=== PATIENT | male | born 1955 | race Two or more races ===

== ENCOUNTER 2020-08-09 15:35 | Inpatient (IN) | payer OTHER ==
[~2020-08-09] VITALS: Ht 170.2 cm; Wt 91.2 kg
[2020-08-09 19:00] LABS: Basophils # (auto) 0 10 ^3/uL (0-0.2); Basophils % (auto) 0.1 % (0.0-2.0); Eosinophils # (auto) 0.2 10 ^3/uL (0-0.8); Eosinophils % (auto) 1.1 % (0.0-7.0); Hematocrit 44.3 % (41.0-53.0); Hemoglobin 14.7 g/dL (13.5-17.5); Lymphocytes # (auto) 0.6 10 ^3/uL (0.4-5.4); Lymphocytes % (auto) 4.1 % (10.0-50.0); Mean Corpuscular Hemoglobin 29.7 pg (28.0-32.0); Mean Corpuscular Hgb Conc. 33.2 g/dL (32.0-36.0); Mean Corpuscular Volume 89.4 fL (80.0-100.0); Monocytes # (auto) 0.9 10 ^3/uL (0-1.3); Neutrophils % (auto) 88.7 % (37.0-80.0); Nucleated Red Blood Cells % 0.4 %; Platelet Count (auto) 384 10^3/uL (140-450); Red Blood Cells 4.96 10^6/uL (4.5-5.90); Red Cell Distribution Width 13.8 % (11.8-14.3); White Blood Cell 15.8 10^3/uL (4.4-10.8)
[2020-08-09 19:25] LABS: Albumin 2.3 g/dL (3.4-5.0); Anion Gap 9 (5-15); Blood Urea Nitrogen 17 mg/dL (7-18); Carbon Dioxide 21 mmol/L (21-32); Chloride 104 mmol/L (98-107); Glucose 115 mg/dL (74-106); Magnesium 2.9 mg/dL (1.6-2.6); Potassium 3.9 mmol/L (3.5-5.1); Sodium 134 mmol/L (136-145)
[2020-08-09 19:32] LABS: Alanine Aminotransferase 71 U/L (16-61); Alkaline Phosphatase 382 U/L (45-117); Aspartate Aminotransferase 30 U/L (15-37); BUN/Creatinine Ratio 16.7; Bilirubin, Total 1.5 mg/dL (0.2-1.0); GFR African American 95 mL/min; GFR Non-African American 78 mL/min; Total Protein 7.1 g/dL (6.4-8.2)
[2020-08-09] MEDS ORDERED: AZITHROMYCIN 500MG/ 250ML 250 ML IV ONE (20:30)
[2020-08-09] MEDS ORDERED: ASCORBIC ACID 500 MG TAB PO ONE (20:30)
[2020-08-09] MEDS ORDERED: DexAMETHasone SOD PHOS 10MG/1ML VIAL INJ IV ONE (20:30)
[2020-08-09] MEDS ORDERED: MORPHINE SULF INJ 2 MG/ML SYRINGE 1ML IV PRN (22:15)
[2020-08-09] MEDS ORDERED: DOCUSATE SOD 100 MG CAP PO PRN (22:15)
[2020-08-09] MEDS ORDERED: ACETAMINOPHEN 500 MG TAB PO PRN (22:15)
[2020-08-09] MEDS ORDERED: ACETAMINOPHEN 325 MG TAB PO PRN (22:15)
[2020-08-09] MEDS ORDERED: NITROGLYCERIN 0.4 MG SL TAB SL PRN (22:15)
[2020-08-10] MEDS: DOXYCYCLINE 100MG/250ML 250 ML IV SCH ×3 (00:20→22:52)
[2020-08-10] MEDS: SODIUM CHLOR 0.9% PF (SALINE LOCK) 10ML VIAL/SYR IV SCH ×3 (04:49→22:47)
[2020-08-10] MEDS ORDERED: ENOXAPARIN SOD 40 MG/0.4 ML SYRINGE SC SCH (10:00)
[2020-08-10 10:21] LABS: Hematocrit 41.9 % (41.0-53.0); Hemoglobin 14.1 g/dL (13.5-17.5); Mean Corpuscular Hgb Conc. 33.6 g/dL (32.0-36.0); Mean Corpuscular Volume 89.5 fL (80.0-100.0); Platelet Count (auto) 434 10^3/uL (140-450); Red Blood Cells 4.68 10^6/uL (4.5-5.90); Red Cell Distribution Width 13.7 % (11.8-14.3); White Blood Cell 12.7 10^3/uL (4.4-10.8)
[2020-08-10] MEDS: BUDESONIDE (INHALATION) 180 MCG IH IN SCH ×2 (10:25→21:38)
[2020-08-10] MEDS: ALBUTEROL SULF HFA 90MCG INH 200DOSE IN PRN ×2 (10:26→21:38)
[2020-08-10 10:29] LABS: Potassium 4.3 mmol/L (3.5-5.1)
[2020-08-10 10:38] LABS: Albumin 2.2 g/dL (3.4-5.0); BUN/Creatinine Ratio 19.8; Bilirubin, Total 1.1 mg/dL (0.2-1.0); Calcium 8.2 mg/dL (8.5-10.1); Total Protein 7.1 g/dL (6.4-8.2)
[2020-08-10 10:39] LABS: Basophils % (manual) 0 (0.0-2.0); Blast Cells 0; Eosinophils % (manual) 0 (0-7); Promyelocytes % 0; Reactive Lymphocytes 0
[2020-08-10] MEDS: DexAMETHasone SOD PHOS 10MG/1ML VIAL INJ IV SCH (11:30)
[2020-08-10] MEDS: PANTOPRAZOLE 40 MG/10 ML VIAL INJ IV SCH (11:30)
[2020-08-10] MEDS: ZINC SULFATE 220mg CAP or TAB PO SCH (12:00)
[2020-08-10] MEDS: CHOLECALCIFEROL (VITD3) 2,000 UNIT CAP PO SCH (12:00)
[2020-08-10] MEDS: ASCORBIC ACID 1,000 MG TAB PO SCH (12:00)
[2020-08-10] MEDS: MULTIPLE VITAMIN TAB PO SCH (12:00)
[2020-08-10 14:26] LABS: Band Neutrophils % (manual) 11
[2020-08-10 14:27] LABS: Lymphocytes % (manual) 2 (10.0-50.0); Metamyelocytes % 1; Monocytes % (manual) 6 (0-12); Myelocytes % 2
[2020-08-10 20:00] VITALS: BP 149/74
[2020-08-10 21:47] VITALS: BP 149/74
[2020-08-11] MEDS ORDERED: INFLUENZA QUAD 2020-2021 0.5 ML SYRG IM ONE (00:30)
[2020-08-11] MEDS ORDERED: PNEUMOCOCCAL VACC POLYS 25 MCG/0.5 ML VIAL IM ONE (00:30)
[2020-08-11] MEDS: HYDROcodone-ACET 5/325MG TAB PO PRN (04:32)
[2020-08-11 05:00] VITALS: BP 122/56
[2020-08-11] MEDS: SODIUM CHLOR 0.9% PF (SALINE LOCK) 10ML VIAL/SYR IV SCH ×3 (05:42→21:09)
[2020-08-11 07:47] LABS: Red Cell Distribution Width 13.7 % (11.8-14.3)
[2020-08-11 07:49] LABS: Hematocrit 39.2 % (41.0-53.0); Hemoglobin 12.9 g/dL (13.5-17.5); Mean Corpuscular Hemoglobin 29.5 pg (28.0-32.0); Mean Corpuscular Volume 89.4 fL (80.0-100.0); Platelet Count (auto) 519 10^3/uL (140-450); Red Blood Cells 4.39 10^6/uL (4.5-5.90); White Blood Cell 20.1 10^3/uL (4.4-10.8)
[2020-08-11 07:56] LABS: Basophils % (manual) 0 (0.0-2.0); Blast Cells 0; Eosinophils % (manual) 0 (0-7); Promyelocytes % 0; Reactive Lymphocytes 0
[2020-08-11 07:57] LABS: Potassium 4.4 mmol/L (3.5-5.1)
[2020-08-11 08:04] LABS: BUN/Creatinine Ratio 26.4; Calcium 8.2 mg/dL (8.5-10.1)
[2020-08-11] MEDS ORDERED: REMDESIVIR PER PHARMACY 0 ML IV SCH ×2 (08:30→09:30)
[2020-08-11 08:37] VITALS: BP 116/68
[2020-08-11] MEDS: ALBUTEROL SULF HFA 90MCG INH 200DOSE IN PRN ×2 (09:09→22:30)
[2020-08-11] MEDS: BUDESONIDE (INHALATION) 180 MCG IH IN SCH ×2 (09:09→22:30)
[2020-08-11] MEDS ORDERED: ENOXAPARIN SOD 40 MG/0.4 ML SYRINGE SC SCH (10:00)
[2020-08-11] MEDS: CHOLECALCIFEROL (VITD3) 2,000 UNIT CAP PO SCH (10:00)
[2020-08-11] MEDS: DexAMETHasone SOD PHOS 10MG/1ML VIAL INJ IV SCH (10:22)
[2020-08-11] MEDS: DOXYCYCLINE 100MG/250ML 250 ML IV SCH ×2 (10:22→21:10)
[2020-08-11] MEDS: PANTOPRAZOLE 40 MG/10 ML VIAL INJ IV SCH (10:22)
[2020-08-11] MEDS: MULTIPLE VITAMIN TAB PO SCH (10:22)
[2020-08-11] MEDS: ASCORBIC ACID 1,000 MG TAB PO SCH (10:22)
[2020-08-11] MEDS: ZINC SULFATE 220mg CAP or TAB PO SCH (10:22)
[2020-08-11] MEDS: ENOXAPARIN SOD 40 MG/0.4 ML SYRINGE SC SCH ×2 (10:23→21:10)
[2020-08-11 13:15] VITALS: BP 124/70
[2020-08-11] MEDS: guaiFENesin-CODEINE Liq 5 ML UD PO PRN ×2 (14:06→21:09)
[2020-08-11 14:10] LABS: Band Neutrophils % (manual) 7; Lymphocytes % (manual) 4 (10.0-50.0); Metamyelocytes % 1; Monocytes % (manual) 9 (0-12); Myelocytes % 1
[2020-08-11] MEDS ORDERED: REMDESIVIR 200 MG in NS 210ml LOADING DOSE ADULT IV ONE (15:00)
[2020-08-11 17:14] VITALS: BP 99/69
[2020-08-11 18:05] LABS: Urine WBC None Seen /hpf (0 - 3)
[2020-08-11 18:28] LABS: Urine Bacteria NONE SEEN /hpf (None Seen); Urine Blood Negative /uL (Negative); Urine Specific Gravity 1.012 (1.001-1.035)
[2020-08-11 22:00] VITALS: BP 125/73
[2020-08-12] MEDS: guaiFENesin-CODEINE Liq 5 ML UD PO PRN ×3 (02:33→20:42)
[2020-08-12] MEDS: SODIUM CHLOR 0.9% PF (SALINE LOCK) 10ML VIAL/SYR IV SCH ×3 (06:30→22:00)
[2020-08-12 07:14] LABS: Hematocrit 41.2 % (41.0-53.0); Hemoglobin 13.8 g/dL (13.5-17.5); Mean Corpuscular Hgb Conc. 33.5 g/dL (32.0-36.0); Mean Corpuscular Volume 89.5 fL (80.0-100.0); Platelet Count (auto) 548 10^3/uL (140-450); Red Blood Cells 4.61 10^6/uL (4.5-5.90); White Blood Cell 15.5 10^3/uL (4.4-10.8)
[2020-08-12 07:24] LABS: Band Neutrophils % (manual) 0; Basophils % (manual) 0 (0.0-2.0); Blast Cells 0; Eosinophils % (manual) 0 (0-7); Promyelocytes % 0; Reactive Lymphocytes 0
[2020-08-12 07:37] LABS: Potassium 4.3 mmol/L (3.5-5.1)
[2020-08-12 08:02] LABS: Albumin 2.2 g/dL (3.4-5.0); BUN/Creatinine Ratio 24.5; Bilirubin, Total 0.7 mg/dL (0.2-1.0); CRP High Sensitivity 4.4 mg/dL (< 0.3); Calcium 8.7 mg/dL (8.5-10.1)
[2020-08-12] MEDS: ALBUTEROL SULF HFA 90MCG INH 200DOSE IN PRN ×2 (08:27→22:30)
[2020-08-12] MEDS: BUDESONIDE (INHALATION) 180 MCG IH IN SCH ×2 (08:27→22:30)
[2020-08-12 08:34] LABS: Lymphocytes % (manual) 7 (10.0-50.0); Metamyelocytes % 1; Monocytes % (manual) 5 (0-12); Myelocytes % 2
[2020-08-12 08:46] VITALS: BP 135/69
[2020-08-12] MEDS: PANTOPRAZOLE 40 MG/10 ML VIAL INJ IV SCH (10:16)
[2020-08-12] MEDS: DOXYCYCLINE 100MG/250ML 250 ML IV SCH ×2 (10:16→22:06)
[2020-08-12] MEDS: ASCORBIC ACID 1,000 MG TAB PO SCH (10:16)
[2020-08-12] MEDS: ZINC SULFATE 220mg CAP or TAB PO SCH (10:16)
[2020-08-12] MEDS: MULTIPLE VITAMIN TAB PO SCH (10:16)
[2020-08-12] MEDS: CHOLECALCIFEROL (VITD3) 2,000 UNIT CAP PO SCH (10:16)
[2020-08-12] MEDS: DexAMETHasone SOD PHOS 10MG/1ML VIAL INJ IV SCH (10:16)
[2020-08-12] MEDS: ENOXAPARIN SOD 40 MG/0.4 ML SYRINGE SC SCH (10:18)
[2020-08-12 13:00] VITALS: BP 116/71
[2020-08-12] MEDS: REMDESIVIR 100 MG in SODIUM CHL 0.9% 250 ML IV SCH (15:00)
[2020-08-12 17:23] VITALS: BP 112/71
[2020-08-13] MEDS: guaiFENesin-CODEINE Liq 5 ML UD PO PRN ×3 (04:57→22:11)
[2020-08-13 05:00] VITALS: BP 117/76
[2020-08-13] MEDS: SODIUM CHLOR 0.9% PF (SALINE LOCK) 10ML VIAL/SYR IV SCH ×3 (05:37→22:09)
[2020-08-13] MEDS: HYDROcodone-ACET 5/325MG TAB PO PRN (05:59)
[2020-08-13] MEDS: BUDESONIDE (INHALATION) 180 MCG IH IN SCH ×2 (07:28→20:44)
[2020-08-13 08:30] VITALS: BP 137/79
[2020-08-13] MEDS ORDERED: LISI-646 PO (08:45)
[2020-08-13] MEDS ORDERED: AMLO5TAB15 PO (08:45)
[2020-08-13 09:16] LABS: Hemoglobin 14.8 g/dL (13.5-17.5); Mean Corpuscular Hgb Conc. 33.7 g/dL (32.0-36.0); Platelet Count (auto) 601 10^3/uL (140-450); Red Blood Cells 4.94 10^6/uL (4.5-5.90); Red Cell Distribution Width 13.7 % (11.8-14.3); White Blood Cell 18.5 10^3/uL (4.4-10.8)
[2020-08-13 09:17] LABS: Basophils % (manual) 0 (0.0-2.0); Blast Cells 0; Eosinophils % (manual) 0 (0-7); Promyelocytes % 0; Reactive Lymphocytes 0
[2020-08-13 09:25] LABS: Albumin 2.4 g/dL (3.4-5.0); Calcium 8.8 mg/dL (8.5-10.1); Potassium 4.1 mmol/L (3.5-5.1)
[2020-08-13 09:28] LABS: Bilirubin, Total 0.8 mg/dL (0.2-1.0); Total Protein 7.4 g/dL (6.4-8.2)
[2020-08-13 09:54] LABS: CRP High Sensitivity 7.89 mg/dL (< 0.3)
[2020-08-13] MEDS: SODIUM CHLORIDE 0.9% 1,000 ML IV SCH ×2 (11:15→18:15)
[2020-08-13] MEDS: DexAMETHasone SOD PHOS 10MG/1ML VIAL INJ IV SCH (11:15)
[2020-08-13] MEDS: DOXYCYCLINE 100MG/250ML 250 ML IV SCH ×2 (11:16→22:10)
[2020-08-13] MEDS: PANTOPRAZOLE 40 MG/10 ML VIAL INJ IV SCH (11:16)
[2020-08-13] MEDS: ZINC SULFATE 220mg CAP or TAB PO SCH (11:17)
[2020-08-13] MEDS: ASCORBIC ACID 1,000 MG TAB PO SCH (11:17)
[2020-08-13] MEDS: MULTIPLE VITAMIN TAB PO SCH (11:17)
[2020-08-13] MEDS: CHOLECALCIFEROL (VITD3) 2,000 UNIT CAP PO SCH (11:18)
[2020-08-13 12:03] LABS: BUN/Creatinine Ratio 28.4
[2020-08-13 12:30] VITALS: BP 98/65
[2020-08-13 13:06] LABS: Band Neutrophils % (manual) 3; Lymphocytes % (manual) 5 (10.0-50.0); Metamyelocytes % 1; Monocytes % (manual) 10 (0-12); Myelocytes % 5
[2020-08-13] MEDS: ENOXAPARIN SOD 40 MG/0.4 ML SYRINGE SC SCH (13:37)
[2020-08-13] MEDS ORDERED: IOHEXOL 350 MG/ML 100ML IJ ONE (13:44)
[2020-08-13] MEDS: REMDESIVIR 100 MG in SODIUM CHL 0.9% 250 ML IV SCH (15:00)
[2020-08-13 17:00] VITALS: BP 115/61
[2020-08-13] MEDS: ALBUTEROL SULF HFA 90MCG INH 200DOSE IN PRN (20:44)
[2020-08-13 22:00] VITALS: BP 104/68
[2020-08-14] MEDS: HYDROcodone-ACET 5/325MG TAB PO PRN ×3 (00:49→22:10)
[2020-08-14] MEDS: SODIUM CHLOR 0.9% PF (SALINE LOCK) 10ML VIAL/SYR IV SCH ×3 (06:16→22:09)
[2020-08-14] MEDS: guaiFENesin-CODEINE Liq 5 ML UD PO PRN ×2 (06:37→15:47)
[2020-08-14 07:06] LABS: Hemoglobin 14.7 g/dL (13.5-17.5); White Blood Cell 17.2 10^3/uL (4.4-10.8)
[2020-08-14 07:17] LABS: Hematocrit 43.6 % (41.0-53.0); Mean Corpuscular Hemoglobin 30.2 pg (28.0-32.0); Mean Corpuscular Hgb Conc. 33.7 g/dL (32.0-36.0); Mean Corpuscular Volume 89.6 fL (80.0-100.0); Platelet Count (auto) 627 10^3/uL (140-450); Red Blood Cells 4.87 10^6/uL (4.5-5.90)
[2020-08-14] MEDS: ALBUTEROL SULF HFA 90MCG INH 200DOSE IN PRN ×3 (07:28→21:31)
[2020-08-14] MEDS: BUDESONIDE (INHALATION) 180 MCG IH IN SCH ×2 (07:31→21:30)
[2020-08-14 07:43] LABS: Potassium 4.2 mmol/L (3.5-5.1)
[2020-08-14 07:52] LABS: Basophils % (manual) 0 (0.0-2.0); Blast Cells 0; Metamyelocytes % 0; Promyelocytes % 0; Reactive Lymphocytes 0
[2020-08-14 08:07] LABS: Albumin 2.4 g/dL (3.4-5.0); BUN/Creatinine Ratio 28.9; Bilirubin, Total 0.8 mg/dL (0.2-1.0); CRP High Sensitivity 9.34 mg/dL (< 0.3); Total Protein 7.4 g/dL (6.4-8.2)
[2020-08-14 08:42] LABS: Band Neutrophils % (manual) 3; Eosinophils % (manual) 1 (0-7); Lymphocytes % (manual) 9 (10.0-50.0); Monocytes % (manual) 8 (0-12); Myelocytes % 1
[2020-08-14 09:00] VITALS: BP 107/75
[2020-08-14] MEDS: DOXYCYCLINE 100MG/250ML 250 ML IV SCH ×2 (10:00→22:09)
[2020-08-14] MEDS: MULTIPLE VITAMIN TAB PO SCH (10:32)
[2020-08-14] MEDS: ZINC SULFATE 220mg CAP or TAB PO SCH (10:34)
[2020-08-14] MEDS: ENOXAPARIN SOD 100 MG/1 ML SYRINGE SC SCH ×2 (10:34→22:10)
[2020-08-14] MEDS: CHOLECALCIFEROL (VITD3) 2,000 UNIT CAP PO SCH (10:35)
[2020-08-14] MEDS: ASCORBIC ACID 1,000 MG TAB PO SCH (10:35)
[2020-08-14] MEDS: PANTOPRAZOLE 40 MG/10 ML VIAL INJ IV SCH (10:36)
[2020-08-14] MEDS: DexAMETHasone SOD PHOS 10MG/1ML VIAL INJ IV SCH (10:37)
[2020-08-14 13:00] VITALS: BP 115/73
[2020-08-14] MEDS: REMDESIVIR 100 MG in SODIUM CHL 0.9% 250 ML IV SCH (15:47)
[2020-08-14 17:00] VITALS: BP 109/54
[2020-08-14 22:00] VITALS: BP 112/61
[2020-08-15] MEDS: guaiFENesin-CODEINE Liq 5 ML UD PO PRN ×3 (01:36→21:27)
[2020-08-15 05:51] LABS: White Blood Cell 14.6 10^3/uL (4.4-10.8)
[2020-08-15 05:53] LABS: Hematocrit 43.3 % (41.0-53.0); Hemoglobin 14.2 g/dL (13.5-17.5); Mean Corpuscular Hemoglobin 29.6 pg (28.0-32.0); Mean Corpuscular Hgb Conc. 32.7 g/dL (32.0-36.0); Mean Corpuscular Volume 90.4 fL (80.0-100.0); Platelet Count (auto) 584 10^3/uL (140-450); Red Blood Cells 4.79 10^6/uL (4.5-5.90); Red Cell Distribution Width 13.8 % (11.8-14.3)
[2020-08-15] MEDS: SODIUM CHLOR 0.9% PF (SALINE LOCK) 10ML VIAL/SYR IV SCH ×3 (05:54→21:19)
[2020-08-15 06:07] LABS: Potassium 4.3 mmol/L (3.5-5.1)
[2020-08-15 06:18] LABS: Albumin 2.2 g/dL (3.4-5.0); BUN/Creatinine Ratio 27.9; Bilirubin, Total 0.6 mg/dL (0.2-1.0); CRP High Sensitivity 7.37 mg/dL (< 0.3); Calcium 8.2 mg/dL (8.5-10.1); Total Protein 6.5 g/dL (6.4-8.2)
[2020-08-15 06:39] LABS: Basophils % (manual) 0 (0.0-2.0); Blast Cells 0; Metamyelocytes % 0; Myelocytes % 0; Promyelocytes % 0; Reactive Lymphocytes 0
[2020-08-15] MEDS: ALBUTEROL SULF HFA 90MCG INH 200DOSE IN PRN ×2 (08:15→22:13)
[2020-08-15] MEDS: BUDESONIDE (INHALATION) 180 MCG IH IN SCH ×2 (08:15→22:13)
[2020-08-15 08:30] VITALS: BP 111/66
[2020-08-15 08:46] LABS: Band Neutrophils % (manual) 7; Eosinophils % (manual) 1 (0-7); Lymphocytes % (manual) 6 (10.0-50.0); Monocytes % (manual) 6 (0-12)
[2020-08-15] MEDS: HYDROcodone-ACET 5/325MG TAB PO PRN (09:43)
[2020-08-15] MEDS: ASCORBIC ACID 1,000 MG TAB PO SCH (09:44)
[2020-08-15] MEDS: MULTIPLE VITAMIN TAB PO SCH (09:44)
[2020-08-15] MEDS: PANTOPRAZOLE 40 MG/10 ML VIAL INJ IV SCH (09:44)
[2020-08-15] MEDS: ENOXAPARIN SOD 100 MG/1 ML SYRINGE SC SCH ×2 (09:44→21:28)
[2020-08-15] MEDS: DexAMETHasone SOD PHOS 10MG/1ML VIAL INJ IV SCH (09:45)
[2020-08-15] MEDS: ZINC SULFATE 220mg CAP or TAB PO SCH (09:51)
[2020-08-15] MEDS: CHOLECALCIFEROL (VITD3) 2,000 UNIT CAP PO SCH (09:52)
[2020-08-15] MEDS: REMDESIVIR 100 MG in SODIUM CHL 0.9% 250 ML IV SCH (15:06)
[2020-08-15 16:27] VITALS: BP 106/66
[2020-08-15 22:00] VITALS: BP 129/60
[2020-08-16 05:57] VITALS: BP 128/67
[2020-08-16] MEDS: SODIUM CHLOR 0.9% PF (SALINE LOCK) 10ML VIAL/SYR IV SCH ×3 (06:00→20:57)
[2020-08-16 07:29] LABS: Hematocrit 44.7 % (41.0-53.0); Red Blood Cells 4.88 10^6/uL (4.5-5.90)
[2020-08-16 07:31] LABS: Mean Corpuscular Hemoglobin 30.7 pg (28.0-32.0); Mean Corpuscular Hgb Conc. 33.6 g/dL (32.0-36.0); Mean Corpuscular Volume 91.6 fL (80.0-100.0); Platelet Count (auto) 557 10^3/uL (140-450); Red Cell Distribution Width 13.8 % (11.8-14.3); White Blood Cell 13.7 10^3/uL (4.4-10.8)
[2020-08-16 07:46] LABS: Potassium 4.2 mmol/L (3.5-5.1)
[2020-08-16 07:52] LABS: Albumin 2.5 g/dL (3.4-5.0); BUN/Creatinine Ratio 29.1; Basophils % (manual) 0 (0.0-2.0); Blast Cells 0; Calcium 8.8 mg/dL (8.5-10.1); Myelocytes % 0; Promyelocytes % 0; Reactive Lymphocytes 0
[2020-08-16 07:55] LABS: Bilirubin, Total 0.7 mg/dL (0.2-1.0); Total Protein 7.2 g/dL (6.4-8.2)
[2020-08-16 09:00] VITALS: BP 106/68
[2020-08-16 09:07] LABS: Band Neutrophils % (manual) 1; Eosinophils % (manual) 1 (0-7); Lymphocytes % (manual) 4 (10.0-50.0); Metamyelocytes % 1; Monocytes % (manual) 6 (0-12)
[2020-08-16] MEDS: PANTOPRAZOLE 40 MG/10 ML VIAL INJ IV SCH (10:34)
[2020-08-16] MEDS: ASCORBIC ACID 1,000 MG TAB PO SCH (10:34)
[2020-08-16] MEDS: CHOLECALCIFEROL (VITD3) 2,000 UNIT CAP PO SCH (10:34)
[2020-08-16] MEDS: DexAMETHasone SOD PHOS 10MG/1ML VIAL INJ IV SCH (10:34)
[2020-08-16] MEDS: BUDESONIDE (INHALATION) 180 MCG IH IN SCH ×2 (10:34→22:48)
[2020-08-16] MEDS: MULTIPLE VITAMIN TAB PO SCH (10:34)
[2020-08-16] MEDS: ZINC SULFATE 220mg CAP or TAB PO SCH (10:34)
[2020-08-16] MEDS: guaiFENesin-CODEINE Liq 5 ML UD PO PRN ×3 (10:35→20:58)
[2020-08-16] MEDS: ENOXAPARIN SOD 100 MG/1 ML SYRINGE SC SCH ×2 (10:35→20:58)
[2020-08-16 16:00] VITALS: BP 112/73
[2020-08-16 22:20] VITALS: BP 98/64
[2020-08-17] MEDS: guaiFENesin-CODEINE Liq 5 ML UD PO PRN ×4 (03:42→21:08)
[2020-08-17 05:11] VITALS: BP 107/60
[2020-08-17] MEDS: SODIUM CHLOR 0.9% PF (SALINE LOCK) 10ML VIAL/SYR IV SCH ×3 (05:37→22:20)
[2020-08-17 07:34] LABS: Mean Corpuscular Volume 89.5 fL (80.0-100.0)
[2020-08-17 07:37] LABS: Hematocrit 40.4 % (41.0-53.0); Hemoglobin 13.8 g/dL (13.5-17.5); Mean Corpuscular Hemoglobin 30.5 pg (28.0-32.0); Mean Corpuscular Hgb Conc. 34.1 g/dL (32.0-36.0); Platelet Count (auto) 594 10^3/uL (140-450); Red Blood Cells 4.52 10^6/uL (4.5-5.90); Red Cell Distribution Width 13.9 % (11.8-14.3); White Blood Cell 13.9 10^3/uL (4.4-10.8)
[2020-08-17 07:47] LABS: Potassium 3.8 mmol/L (3.5-5.1)
[2020-08-17 07:58] LABS: Albumin 2.4 g/dL (3.4-5.0); BUN/Creatinine Ratio 28.4; Bilirubin, Total 0.6 mg/dL (0.2-1.0); Total Protein 6.7 g/dL (6.4-8.2)
[2020-08-17 08:00] VITALS: BP 107/59
[2020-08-17 08:08] LABS: Basophils % (manual) 0 (0.0-2.0); Blast Cells 0; Calcium 8.3 mg/dL (8.5-10.1); Promyelocytes % 0; Reactive Lymphocytes 0
[2020-08-17] MEDS: ALBUTEROL SULF HFA 90MCG INH 200DOSE IN PRN ×2 (09:27→22:22)
[2020-08-17] MEDS: ASCORBIC ACID 1,000 MG TAB PO SCH (10:00)
[2020-08-17] MEDS: ENOXAPARIN SOD 100 MG/1 ML SYRINGE SC SCH ×2 (10:01→22:21)
[2020-08-17] MEDS: PANTOPRAZOLE 40 MG/10 ML VIAL INJ IV SCH (10:01)
[2020-08-17] MEDS: MULTIPLE VITAMIN TAB PO SCH (10:01)
[2020-08-17] MEDS: DexAMETHasone SOD PHOS 10MG/1ML VIAL INJ IV SCH (10:01)
[2020-08-17] MEDS: ZINC SULFATE 220mg CAP or TAB PO SCH (10:01)
[2020-08-17] MEDS: CHOLECALCIFEROL (VITD3) 2,000 UNIT CAP PO SCH (10:01)
[2020-08-17] MEDS: BUDESONIDE (INHALATION) 180 MCG IH IN SCH ×2 (10:08→22:20)
[2020-08-17 13:00] LABS: Band Neutrophils % (manual) 3; Eosinophils % (manual) 1 (0-7); Lymphocytes % (manual) 6 (10.0-50.0); Metamyelocytes % 1; Monocytes % (manual) 3 (0-12); Myelocytes % 1
[2020-08-17 15:47] VITALS: BP 126/62
[2020-08-17] MEDS: HYDROcodone-ACET 5/325MG TAB PO PRN (22:36)
[2020-08-18] VITALS: BP 108/54
[2020-08-18] MEDS: SODIUM CHLOR 0.9% PF (SALINE LOCK) 10ML VIAL/SYR IV SCH ×3 (06:40→21:09)
[2020-08-18] MEDS: HYDROcodone-ACET 5/325MG TAB PO PRN ×3 (06:47→20:23)
[2020-08-18] MEDS: guaiFENesin-CODEINE Liq 5 ML UD PO PRN ×3 (06:47→20:23)
[2020-08-18 07:05] LABS: White Blood Cell 15.6 10^3/uL (4.4-10.8)
[2020-08-18 07:07] LABS: Hematocrit 39.6 % (41.0-53.0); Hemoglobin 13.8 g/dL (13.5-17.5); Mean Corpuscular Hemoglobin 30.8 pg (28.0-32.0); Mean Corpuscular Hgb Conc. 34.7 g/dL (32.0-36.0); Mean Corpuscular Volume 88.8 fL (80.0-100.0); Platelet Count (auto) 594 10^3/uL (140-450); Red Blood Cells 4.46 10^6/uL (4.5-5.90); Red Cell Distribution Width 13.6 % (11.8-14.3)
[2020-08-18 07:11] LABS: Band Neutrophils % (manual) 0; Basophils % (manual) 0 (0.0-2.0); Blast Cells 0; Eosinophils % (manual) 0 (0-7); Metamyelocytes % 0; Myelocytes % 0; Promyelocytes % 0; Reactive Lymphocytes 0
[2020-08-18 07:38] LABS: Lymphocytes % (manual) 9 (10.0-50.0); Monocytes % (manual) 12 (0-12)
[2020-08-18 07:48] LABS: Albumin 2.5 g/dL (3.4-5.0); BUN/Creatinine Ratio 26.4; Calcium 8.6 mg/dL (8.5-10.1); Potassium 4.2 mmol/L (3.5-5.1)
[2020-08-18 07:51] LABS: Bilirubin, Total 0.6 mg/dL (0.2-1.0); Total Protein 7.2 g/dL (6.4-8.2)
[2020-08-18 09:00] VITALS: BP 110/64
[2020-08-18] MEDS: BUDESONIDE (INHALATION) 180 MCG IH IN SCH ×2 (10:00→22:06)
[2020-08-18] MEDS: ENOXAPARIN SOD 100 MG/1 ML SYRINGE SC SCH ×2 (10:07→22:26)
[2020-08-18] MEDS: ASCORBIC ACID 1,000 MG TAB PO SCH (10:07)
[2020-08-18] MEDS: MULTIPLE VITAMIN TAB PO SCH (10:07)
[2020-08-18] MEDS: ZINC SULFATE 220mg CAP or TAB PO SCH (10:07)
[2020-08-18] MEDS: PANTOPRAZOLE 40 MG/10 ML VIAL INJ IV SCH (10:07)
[2020-08-18] MEDS: CHOLECALCIFEROL (VITD3) 2,000 UNIT CAP PO SCH (10:08)
[2020-08-18] MEDS: DexAMETHasone SOD PHOS 10MG/1ML VIAL INJ IV SCH (10:08)
[2020-08-18] MEDS: ALBUTEROL SULF HFA 90MCG INH 200DOSE IN PRN (22:06)
[2020-08-19] VITALS: BP 106/59
[2020-08-19] MEDS: LORazepam 2MG/ML-1ML VIAL IV PRN ×2 (00:30→15:19)
[2020-08-19] MEDS: guaiFENesin-CODEINE Liq 5 ML UD PO PRN ×4 (03:42→22:42)
[2020-08-19] MEDS: HYDROcodone-ACET 5/325MG TAB PO PRN ×2 (05:11→11:01)
[2020-08-19] MEDS: SODIUM CHLOR 0.9% PF (SALINE LOCK) 10ML VIAL/SYR IV SCH ×3 (05:16→21:23)
[2020-08-19 06:52] LABS: Hematocrit 40.8 % (41.0-53.0); Hemoglobin 13.5 g/dL (13.5-17.5); Mean Corpuscular Hemoglobin 29.5 pg (28.0-32.0); Mean Corpuscular Volume 89.5 fL (80.0-100.0); Platelet Count (auto) 570 10^3/uL (140-450); Red Blood Cells 4.56 10^6/uL (4.5-5.90); Red Cell Distribution Width 13.9 % (11.8-14.3); White Blood Cell 16.1 10^3/uL (4.4-10.8)
[2020-08-19 06:54] LABS: Band Neutrophils % (manual) 0; Basophils % (manual) 0 (0.0-2.0); Blast Cells 0; Eosinophils % (manual) 0 (0-7); Metamyelocytes % 0; Myelocytes % 0; Promyelocytes % 0; Reactive Lymphocytes 0
[2020-08-19] MEDS: ONDANSETRON HCL 4 MG/2 ML VIAL IV PRN ×2 (07:08→11:01)
[2020-08-19 07:14] LABS: Potassium 3.9 mmol/L (3.5-5.1)
[2020-08-19 07:20] LABS: Albumin 2.5 g/dL (3.4-5.0); BUN/Creatinine Ratio 25.7; Bilirubin, Total 0.4 mg/dL (0.2-1.0); Calcium 8.6 mg/dL (8.5-10.1); Total Protein 7.2 g/dL (6.4-8.2)
[2020-08-19] MEDS: BUDESONIDE (INHALATION) 180 MCG IH IN SCH ×2 (07:47→21:00)
[2020-08-19] MEDS: ALBUTEROL SULF HFA 90MCG INH 200DOSE IN PRN ×2 (07:47→21:00)
[2020-08-19 08:28] LABS: Lymphocytes % (manual) 8 (10.0-50.0); Monocytes % (manual) 9 (0-12)
[2020-08-19 09:00] VITALS: BP 108/63
[2020-08-19] MEDS: DexAMETHasone SOD PHOS 10MG/1ML VIAL INJ IV SCH (10:59)
[2020-08-19] MEDS: PANTOPRAZOLE 40 MG/10 ML VIAL INJ IV SCH (10:59)
[2020-08-19] MEDS: ZINC SULFATE 220mg CAP or TAB PO SCH (11:00)
[2020-08-19] MEDS: MULTIPLE VITAMIN TAB PO SCH (11:00)
[2020-08-19] MEDS: ASCORBIC ACID 1,000 MG TAB PO SCH (11:00)
[2020-08-19] MEDS: ENOXAPARIN SOD 100 MG/1 ML SYRINGE SC SCH ×2 (11:02→21:23)
[2020-08-19] MEDS: CHOLECALCIFEROL (VITD3) 2,000 UNIT CAP PO SCH (11:03)
[2020-08-19] MEDS: ACETAMINOPHEN 325 MG TAB PO PRN ×2 (15:19→22:43)
[2020-08-19 16:33] VITALS: BP 130/74
[2020-08-20] VITALS: BP 120/64
[2020-08-20] MEDS: ACETAMINOPHEN 325 MG TAB PO PRN ×3 (05:20→22:10)
[2020-08-20] MEDS: guaiFENesin-CODEINE Liq 5 ML UD PO PRN ×2 (05:20→10:50)
[2020-08-20] MEDS: SODIUM CHLOR 0.9% PF (SALINE LOCK) 10ML VIAL/SYR IV SCH ×3 (05:31→22:00)
[2020-08-20 07:02] LABS: Mean Corpuscular Hemoglobin 30.7 pg (28.0-32.0)
[2020-08-20 07:05] LABS: Hemoglobin 13.1 g/dL (13.5-17.5); Mean Corpuscular Hgb Conc. 34.5 g/dL (32.0-36.0); Platelet Count (auto) 520 10^3/uL (140-450); Red Blood Cells 4.27 10^6/uL (4.5-5.90); Red Cell Distribution Width 13.7 % (11.8-14.3); White Blood Cell 14.2 10^3/uL (4.4-10.8)
[2020-08-20 07:20] LABS: Band Neutrophils % (manual) 0; Basophils % (manual) 0 (0.0-2.0); Blast Cells 0; Eosinophils % (manual) 0 (0-7); Metamyelocytes % 0; Promyelocytes % 0; Reactive Lymphocytes 0
[2020-08-20] MEDS: ALBUTEROL SULF HFA 90MCG INH 200DOSE IN PRN ×2 (07:53→20:00)
[2020-08-20] MEDS: BUDESONIDE (INHALATION) 180 MCG IH IN SCH ×2 (07:53→20:00)
[2020-08-20 08:00] VITALS: BP 117/63
[2020-08-20 08:24] LABS: Lymphocytes % (manual) 4 (10.0-50.0); Monocytes % (manual) 5 (0-12); Myelocytes % 1
[2020-08-20 09:01] LABS: Potassium 4.1 mmol/L (3.5-5.1)
[2020-08-20 10:08] LABS: Albumin 2.5 g/dL (3.4-5.0); BUN/Creatinine Ratio 22.7; Bilirubin, Total 0.4 mg/dL (0.2-1.0); Calcium 8.6 mg/dL (8.5-10.1)
[2020-08-20] MEDS: MULTIPLE VITAMIN TAB PO SCH (10:50)
[2020-08-20] MEDS: ENOXAPARIN SOD 100 MG/1 ML SYRINGE SC SCH ×2 (10:50→22:00)
[2020-08-20] MEDS: ASCORBIC ACID 1,000 MG TAB PO SCH (10:50)
[2020-08-20] MEDS: ZINC SULFATE 220mg CAP or TAB PO SCH (10:51)
[2020-08-20] MEDS: PANTOPRAZOLE 40 MG/10 ML VIAL INJ IV SCH (10:51)
[2020-08-20] MEDS: DexAMETHasone SOD PHOS 10MG/1ML VIAL INJ IV SCH (10:51)
[2020-08-20] MEDS: CHOLECALCIFEROL (VITD3) 2,000 UNIT CAP PO SCH (10:51)
[2020-08-20 16:00] VITALS: BP 101/55
[2020-08-21] VITALS: BP 120/68
[2020-08-21] MEDS: guaiFENesin-CODEINE Liq 5 ML UD PO PRN ×3 (02:48→17:55)
[2020-08-21] MEDS: SODIUM CHLOR 0.9% PF (SALINE LOCK) 10ML VIAL/SYR IV SCH ×3 (05:52→22:02)
[2020-08-21 08:38] LABS: Basophils # (auto) 0.1 10 ^3/uL (0-0.2); Basophils % (auto) 0.4 % (0.0-2.0); Eosinophils # (auto) 0.1 10 ^3/uL (0-0.8); Nucleated Red Blood Cells % 0.1 %; Platelet Count (auto) 525 10^3/uL (140-450)
[2020-08-21 08:40] LABS: Eosinophils % (auto) 0.6 % (0.0-7.0); Hematocrit 41.6 % (41.0-53.0); Hemoglobin 13.9 g/dL (13.5-17.5); Lymphocytes # (auto) 1.6 10 ^3/uL (0.4-5.4); Lymphocytes % (auto) 10.4 % (10.0-50.0); Mean Corpuscular Hemoglobin 29.7 pg (28.0-32.0); Mean Corpuscular Hgb Conc. 33.3 g/dL (32.0-36.0); Mean Corpuscular Volume 89.2 fL (80.0-100.0); Monocytes % (auto) 6.5 % (0.0-12.0); Neutrophils # (auto) 12.6 10 ^3/uL (1.6-8.6); Neutrophils % (auto) 82.1 % (37.0-80.0); Red Blood Cells 4.67 10^6/uL (4.5-5.90); Red Cell Distribution Width 13.7 % (11.8-14.3); White Blood Cell 15.3 10^3/uL (4.4-10.8)
[2020-08-21 09:22] LABS: Albumin 2.6 g/dL (3.4-5.0); BUN/Creatinine Ratio 22.5; Bilirubin, Total 0.5 mg/dL (0.2-1.0); Calcium 9.2 mg/dL (8.5-10.1); Total Protein 7.3 g/dL (6.4-8.2)
[2020-08-21] MEDS: ALBUTEROL SULF HFA 90MCG INH 200DOSE IN PRN ×2 (09:47→20:23)
[2020-08-21] MEDS: BUDESONIDE (INHALATION) 180 MCG IH IN SCH ×2 (09:47→20:22)
[2020-08-21] MEDS: MULTIPLE VITAMIN TAB PO SCH (10:38)
[2020-08-21] MEDS: DexAMETHasone SOD PHOS 10MG/1ML VIAL INJ IV SCH (10:38)
[2020-08-21] MEDS: PANTOPRAZOLE 40 MG/10 ML VIAL INJ IV SCH (10:38)
[2020-08-21] MEDS: ASCORBIC ACID 1,000 MG TAB PO SCH (10:38)
[2020-08-21] MEDS: ZINC SULFATE 220mg CAP or TAB PO SCH (10:38)
[2020-08-21] MEDS: ENOXAPARIN SOD 100 MG/1 ML SYRINGE SC SCH ×2 (10:39→22:02)
[2020-08-21] MEDS: CHOLECALCIFEROL (VITD3) 2,000 UNIT CAP PO SCH (10:40)
[2020-08-21] MEDS: ACETAMINOPHEN 325 MG TAB PO PRN ×2 (12:48→19:45)
[2020-08-21 16:00] VITALS: BP 116/58
[2020-08-21 20:00] VITALS: BP 106/65
[2020-08-22] VITALS: BP 128/67
[2020-08-22] MEDS: guaiFENesin-CODEINE Liq 5 ML UD PO PRN ×3 (03:12→17:17)
[2020-08-22] MEDS: ACETAMINOPHEN 325 MG TAB PO PRN ×2 (03:13→17:17)
[2020-08-22] MEDS: SODIUM CHLOR 0.9% PF (SALINE LOCK) 10ML VIAL/SYR IV SCH ×2 (06:16→16:49)
[2020-08-22 07:53] VITALS: BP 118/65
[2020-08-22] MEDS: ASCORBIC ACID 1,000 MG TAB PO SCH (08:58)
[2020-08-22] MEDS: PANTOPRAZOLE 40 MG/10 ML VIAL INJ IV SCH (08:58)
[2020-08-22] MEDS: DexAMETHasone SOD PHOS 10MG/1ML VIAL INJ IV SCH (08:58)
[2020-08-22] MEDS: ZINC SULFATE 220mg CAP or TAB PO SCH (08:58)
[2020-08-22] MEDS: MULTIPLE VITAMIN TAB PO SCH (08:59)
[2020-08-22] MEDS: ENOXAPARIN SOD 100 MG/1 ML SYRINGE SC SCH (08:59)
[2020-08-22] MEDS: CHOLECALCIFEROL (VITD3) 2,000 UNIT CAP PO SCH (08:59)
[2020-08-22 11:22] LABS: Basophils # (auto) 0.1 10 ^3/uL (0-0.2); Basophils % (auto) 0.5 % (0.0-2.0); Eosinophils # (auto) 0.1 10 ^3/uL (0-0.8); Eosinophils % (auto) 0.6 % (0.0-7.0); Hematocrit 40.4 % (41.0-53.0); Hemoglobin 13.7 g/dL (13.5-17.5); Lymphocytes # (auto) 0.8 10 ^3/uL (0.4-5.4); Lymphocytes % (auto) 5.1 % (10.0-50.0); Mean Corpuscular Hemoglobin 30.3 pg (28.0-32.0); Mean Corpuscular Hgb Conc. 33.9 g/dL (32.0-36.0); Mean Corpuscular Volume 89.4 fL (80.0-100.0); Monocytes # (auto) 0.7 10 ^3/uL (0-1.3); Monocytes % (auto) 4.4 % (0.0-12.0); Neutrophils # (auto) 13.8 10 ^3/uL (1.6-8.6); Neutrophils % (auto) 89.4 % (37.0-80.0); Platelet Count (auto) 433 10^3/uL (140-450); Red Blood Cells 4.52 10^6/uL (4.5-5.90); Red Cell Distribution Width 13.8 % (11.8-14.3); White Blood Cell 15.5 10^3/uL (4.4-10.8)
[2020-08-22] MEDS: BUDESONIDE (INHALATION) 180 MCG IH IN SCH (11:24)
[2020-08-22 11:25] LABS: Albumin 2.7 g/dL (3.4-5.0); Calcium 8.8 mg/dL (8.5-10.1)
[2020-08-22 11:28] LABS: BUN/Creatinine Ratio 21.9; Bilirubin, Total 0.5 mg/dL (0.2-1.0); Total Protein 7.3 g/dL (6.4-8.2)
[2020-08-22 16:00] VITALS: BP 134/78
[2020-08-22 16:40] VITALS: BP 134/78
== END 2020-08-22 18:30 | disposition home or self-care (01) | DRG 137 ==
LOC: ER 15:35 → TELE 15:36 → TELE-EAST 08-10 18:44
PROVIDERS: ADMIT Nurse Practitioner Family; ATTEND Hospitalist
PROC: XW033E5 Introduction of Remdesivir Anti-infective into Peripheral Vein, Percutaneous Approach, New Technology Group 5 (ICD-10-PCS; principal; 2020-08-12)
DX: U07.1 COVID-19 (principal); J96.01 Acute respiratory failure with hypoxia; I26.99 Other pulmonary embolism without acute cor pulmonale; J12.89 Other viral pneumonia; R79.89 Other specified abnormal findings of blood chemistry; D72.829 Elevated white blood cell count, unspecified; E66.01 Morbid (severe) obesity due to excess calories; E78.5 Hyperlipidemia, unspecified; F17.210 Nicotine dependence, cigarettes, uncomplicated; E87.1 Hypo-osmolality and hyponatremia; I10 Essential (primary) hypertension; Z68.31 Body mass index [BMI] 31.0-31.9, adult; Z82.49 Family history of ischemic heart disease and other diseases of the circulatory system; Z80.9 Family history of malignant neoplasm, unspecified; J98.11 Atelectasis
CPT/HCPCS: 36415; 36600; 71045; 71275; 80048; 80053; 81001; 82728; 82805; 83036; 83605; 83615; 83735; 84484; 85007; 85025; 85027; 85379; 86141; 87040; 87426; 93005; 93306; 93970; 94640; 96365; 96367; 96372; 96375; 96376; C9113; G0378; J1100; J2405; J3490

== ENCOUNTER 2023-01-18 09:02 | Emergency (ER) | payer OTHER, MEDICAID ==
[~2023-01-18] VITALS: Ht 170.2 cm; Wt 71.1 kg
[~2023-01-18 09:02] MED LIST: AMLO1TAB22 PO; LISI20TA56 PO
[2023-01-18 09:47] LABS: Basophils # (auto) 0 10 ^3/uL (0-0.2); Basophils % (auto) 0.2 % (0.0-2.0); Eosinophils # (auto) 0.2 10 ^3/uL (0-0.8); Eosinophils % (auto) 1.7 % (0.0-7.0); Hematocrit 48.9 % (41.0-53.0); Hemoglobin 16.3 g/dL (13.5-17.5); Lymphocytes # (auto) 1.6 10 ^3/uL (0.4-5.4); Lymphocytes % (auto) 15.8 % (10.0-50.0); Mean Corpuscular Hemoglobin 30.3 pg (28.0-32.0); Mean Corpuscular Hgb Conc. 33.3 g/dL (32.0-36.0); Monocytes % (auto) 10.5 % (0.0-12.0); Neutrophils % (auto) 71.8 % (37.0-80.0); Nucleated Red Blood Cells % 0.1 %; Red Blood Cells 5.38 10^6/uL (4.5-5.90); White Blood Cell 9.8 10^3/uL (4.4-10.8)
[2023-01-18 10:07] LABS: Albumin 3.8 g/dL (3.4-5.0); Calcium 8.1 mg/dL (8.5-10.1)
[2023-01-18 10:11] LABS: BUN/Creatinine Ratio 13.4 (10.0-20.0); Bilirubin, Total 0.7 mg/dL (0.2-1.0); Total Protein 8.3 g/dL (6.4-8.2)
[2023-01-18 10:18] LABS: Urine Bacteria FEW /hpf (None Seen); Urine Blood Negative /uL (Negative); Urine Hyaline Cast FEW /lpf (0 - 2); Urine Mucus FEW (None Seen); Urine Specific Gravity 1.021 (1.001-1.035); Urine WBC 4 /hpf (0 - 3)
[2023-01-18] MEDS ORDERED: PANT40TA2 PO (11:43)
[2023-01-18] MEDS ORDERED: PANTOPRAZOLE 40 MG TAB PO ONE (11:45)
[2023-01-18] MEDS ORDERED: METR500T PO (12:33)
[2023-01-18] MEDS ORDERED: CEPH-510 PO (12:33)
[2023-01-18] MEDS ORDERED: cefTRIAXone SOD 1,000 MG VL IM ONE (12:45)
[2023-01-18] MEDS ORDERED: metroNIDAZOLE 500 MG TAB PO ONE (12:45)
[2023-01-18 12:50] VITALS: BP 116/70
== END 2023-01-18 13:04 | disposition home or self-care (01) ==
LOC: ER 09:02
DX: K52.9 Noninfective gastroenteritis and colitis, unspecified (principal); I10 Essential (primary) hypertension; E78.5 Hyperlipidemia, unspecified; F17.210 Nicotine dependence, cigarettes, uncomplicated; Z79.899 Other long term (current) drug therapy
CPT/HCPCS: 36415; 74176; 80053; 81001; 85025; 93005; 96372; 99285; J0696